=== PATIENT | female | born 1945 | race Caucasian/White ===

== ENCOUNTER → 2020-09-15 | Outpatient (CLI) | payer OTHER | END | disposition home or self-care (01) | LOC: RAD 10:01 | PROVIDERS: ATTEND Internal Medicine | DX: J98.6 Disorders of diaphragm (principal) ==

== ENCOUNTER → 2020-11-03 | Outpatient (CLI) | payer OTHER | LOC: LAB 09:08 | PROVIDERS: ATTEND Internal Medicine | DX: Z01.812 Encounter for preprocedural laboratory examination (principal); Z20.822 Contact with and (suspected) exposure to COVID-19 ==

== ENCOUNTER → 2020-11-26 | Outpatient (CLI) | payer OTHER, MEDICARE | LOC: LAB 11:33 | PROVIDERS: ATTEND Internal Medicine | DX: Z01.812 Encounter for preprocedural laboratory examination (principal); Z20.822 Contact with and (suspected) exposure to COVID-19 ==

== ENCOUNTER → 2020-12-09 | Outpatient (CLI) | payer OTHER, MEDICARE ==
--- NOTE | ~2020-12-09 | MCT ---
[facility] [place] [address] [facility] TEST Name: YUKI TRAN Room #: REG [facility]#: [id number] Admission: 12/09/20 Attend Phys: Huy Valadez MD Discharge: Date of : 49 Report #: [id number] THIS REPORT FOR: //name// COPIES FOR: AGE: 75 SEX/RACE: F/B Height: 59 in Exam Date: 12/09/20 Weight: 219 lbs BTPS: X >> PRE BRONCHODILATOR: PREDICTED BEST %PRED FORCED VITAL CAPACITY (FRC) 2.35 L LPM % FORCED EXP VOL/SEC (FEV1) 1.90 L FEV/FVC % MAX MID-EXP FLOW (FEF 25-75) 1.88 L/SEC L/SEC % PEAK EXP FLOW RATE (FEF MAX) 4.78 L/MIN L/MIN MED-VC RATIO (FEF 50/FEF 50) .09 Baseline: Phenol Saline Level 1: 0.025 mg/ml BEST %PRED %CHANGE BEST %PRED %CHANGE FVC 1.49 L 63 % -4 % FVC L % % FEV1 1.18 L 62 % -9 % FEV1 1.20 L 63 % 1 % Level 2: 0.25 mg/ml Level 3: 2.5 mg/ml BEST %PRED %CHANGE BEST %PRED %CHANGE FVC 1.43 L 61 % -4 % FVC 1.41 L 60 % -5 % FEV1 1.18 L 62 % -1 % FEV1 1.13 L 59 % -5 % . Level 4: 10 mg/ml Level 5: 25 mg/ml BEST %PRED %CHANGE BEST %PRED %CHANGE FVC 1.36 L 58 % -8 % FVC 1.22 L 52 % -18 % FEV1 1.05 L 56 % -11 % FEV1 0.90 L 47 % -24 % Post Bronchodilator: 1st Treatment Post Bronchodilator: 2nd Treatment BEST %PRED %CHANGE BEST %PRED %CHANGE FVC 1.39 L 59 % -6 % FVC L % % FEV1 1.15 L 61 % -3 % FEV1 L % % Post Bronchodilator: 3rd Treatment BEST %PRED %CHANGE FVC L % % [address] [address] [facility] CH[facility]EN[facility] TEST Name: YUKI TRAN [id number] Admission: 12/09/20 Attend Phys: Huy Valadez MD Discharge: Date of : 49 Report #: [id number] FEV1 L % % >> INTERPRETATION: DOC #: [id number] Fab Man M.D. DATE OF SERVICE: 12/09/2020 [facility] TEST Methacholine challenge test was completed in routine standard fashion. Baseline FEV1 is 1.31 liters (69% expected return). With increasing doses of methacholine, on her fifth level FEV1 did decline to 0.90 liters (24% change). Response to bronchodilator therapy was appropriate. IMPRESSION: Positive methacholine challenge test. Fab MACIAS/BIJAN By: Fab Man MD /nt
== END ==
LOC: PUL
PROVIDERS: ATTEND Internal Medicine
DX: R06.00 Dyspnea, unspecified (principal); Z88.2 Allergy status to sulfonamides